=== PATIENT | female | born 1995 | race Caucasian/White ===

== ENCOUNTER 2019-12-20 14:12 | Emergency (ER) | payer MEDICAID ==
[~2019-12-20] VITALS: Ht 175.3 cm; Wt 66.6 kg
[2019-12-20 17:52] VITALS: BP 120/77
== END 2019-12-20 17:54 | disposition home or self-care (01) ==
LOC: ER 14:23
DX: B34.9 Viral infection, unspecified (principal); R05 Cough
CPT/HCPCS: 71045; 99283